=== PATIENT | male | born 1975 | race Caucasian/White ===

== ENCOUNTER 2023-02-16 23:54 | Emergency (ER) | payer OTHER, MEDICAID ==
[~2023-02-16] VITALS: Ht 167.6 cm; Wt 74.0 kg
[2023-02-17 00:39] VITALS: BP 180/99
[2023-02-17 00:49] LABS: BASOPHILS % 0.4 % (0.0-2.0); HEMATOCRIT. 42.7 % (42.0-52.0); HEMOGLOBIN. 14.7 g/dL (14.0-18.0); LYMPHOCYTES % 36.6 % (20.0-50.0); MEAN CORPUSCULAR HEMOGLOBIN 31.3 pg (28.0-32.0); MEAN CORPUSCULAR VOLUME 91.1 fL (80.0-94.0); MEAN PLATELET VOLUME 8.7 fl (7.4-10.4); MONOCYTES % 5.9 % (2.0-8.0); NEUTROPHILS % 54.1 % (40.0-76.0); PLATELET 221 x1000/uL (130-400); RED BLOOD CELL COUNT 4.69 mill/uL (4.7-6.1); RED CELL DISTRIBUTION WIDTH 13.3 % (11.6-14.6)
[2023-02-17 01:00] LABS: CHLORIDE 105 mEq/L (98-107)
[2023-02-17] MEDS ORDERED: KETOROLAC 30MG/ML VIAL IM ONE (01:45)
[2023-02-17] MEDS ORDERED: MAGNESIUM/ALUMINUM HYDROXIDE/SIMETHICONE 30ML UDC PO ONE ×2 (01:45→04:00)
[2023-02-17] MEDS ORDERED: FAMOTIDINE 20MG TABLET PO ONE (01:45)
[2023-02-17 02:21] LABS: CLARITY URINE CLEAR (CLEAR); COLOR URINE YELLOW (YELLOW); KETONES URINE NEGATIVE (NEGATIVE); LEUKOCYTE ESTERASE URINE NEGATIVE (NEGATIVE); NITRITE URINE NEGATIVE (NEGATIVE); OCCULT BLOOD URINE NEGATIVE (NEGATIVE); PROTEIN URINE NEGATIVE (NEGATIVE); SPECIFIC GRAVITY URINE 1.016 (1.005-1.030)
[2023-02-17] MEDS ORDERED: FAMOTIDINE 20MG TABLET PO NR (04:00)
[2023-02-17] MEDS ORDERED: KETOROLAC 30MG/ML VIAL IM NR (04:00)
[2023-02-17] MEDS ORDERED: MAGNESIUM/ALUMINUM HYDROXIDE/SIMETHICONE 30ML UDC PO NR (04:00)
[2023-02-17] MEDS ORDERED: FAMO-135 MT (04:45)
== END 2023-02-17 05:04 | disposition home or self-care (01) ==
LOC: ER 23:54
DX: R10.13 Epigastric pain (principal); E11.9 Type 2 diabetes mellitus without complications
CPT/HCPCS: 36415; 76705; 80053; 81003; 83690; 85025; 99285; J1885